=== PATIENT | female | born 1955 | race Two or more races ===

== ENCOUNTER → 2021-01-24 | Outpatient (CLI) | payer OTHER ==
--- NOTE | 2021-01-24 16:38 | CONS ---
CONSULTATION DATE OF SERVICE: 01/24/2021 This 65-year-old lady has been [facility] for difficulties initiating sleep and for awakenings from sleep and snoring. HISTORY OF PRESENT ILLNESS/SLEEP-WAKE EVALUATION: Patient's usual sleep schedule is from 10:30 p.m. or midnight until 9 to 11 a.m. She does have problems with falling asleep and has a TV set in bedroom. She sleeps in different positions, including back, side and stomach. She does snore and wakes up from sleep 2 times with nocturia. No history of hypnagogic hallucinations, sleep paralysis or cataplexy. The patient is falling asleep during the day, worries about her sleep. Dexter Sleepiness Scale is 5. Usually she feels refreshed after a nap and may see or not see dreams during the naps. PAST MEDICAL HISTORY: Positive for hypertension, allergies, acid reflux. PAST SURGICAL HISTORY: Cyst removed from left shoulder. CURRENT MEDICATIONS: The patient did not bring her list of medications. She takes medication for hypertension, Claritin, omeprazole. SOCIAL HISTORY: Negative for smoking nicotine or using alcohol. Occasionally smokes marijuana. FAMILY HISTORY: Positive for cancer, hypertension. REVIEW OF SYSTEMS: No fevers. No double vision. No recent chest pain. No shortness of breath. No abdominal pain. No bleeding episodes. No blood in the urine. No seizure episodes. Difficulties initiating sleep. Multiple awakenings from sleep. Snoring. PHYSICAL EXAMINATION: GENERAL APPEARANCE: Pleasant -[place] lady without distress. VITAL SIGNS: BP 119/78, HR 84, RR 15, height 5 feet 4-1/2 inches, weight 148. Body mass index 25. Temperature 98.4, oxygen saturation at room air 95%. HEENT: PERRLA, EOMI, evaluation of oropharynx showed tongue protrudes midline. Low position of soft palate; Mallampati III. NECK: Supple, no JVD. Thyroid is not palpable. LUNGS: Clear to percussion and to auscultation. Good air exchange. No wheezing or rhonchi. HEART: S1, S2 regular. No murmurs, gallops, or rubs. ABDOMEN: Soft and nontender. Bowel sounds are present. No organomegaly appreciated. EXTREMITIES: No clubbing or cyanosis. CLINICAL INSTRUCTOR: Awake, alert, and oriented X3. Cranial nerves 2 to 7 intact. There is no fasciculation or atrophy. noted. No focal deficits observed. IMPRESSION: 1. Snoring, multiple awakenings from sleep with nocturia, low position of soft palate; obstructive sleep apnea-hypopnea syndrome. 2. Insomnia with difficulties initiating sleep, psychophysiological. 3. Hypertension. 4. Allergies. 5. Acid reflux. 6. Status post cyst removed from left shoulder. PLAN: 1. I discussed with the patient psychological techniques for insomnia, including stimulus control, paradoxical intention, worry time, no watching clock in bedroom. 2. Polysomnography for evaluation of patient's breathing during sleep. 3. CPAP/BiPAP titration if sleep study confirms obstructive sleep apnea-hypopnea syndrome. 4. Preferable position during sleep on the side. 5. No driving if patient feels any sleepiness. 6. I will see patient for follow up visit to explain results of testing and following plan. Thank you very much for referring this patient for consultation. Sincerely, Jasiel Strickland MD, PhD, FAASM Diplomat [employer] [place] [employer] Sleep Medicine [employer] [place] [employer] Information Security Analyst of [facility] [place] MMODL / DIANNEN: [id number] /
== END ==
LOC: SLEEP 14:58
PROVIDERS: ATTEND Internal Medicine
DX: G47.33 Obstructive sleep apnea (adult) (pediatric) (principal); F51.04 Psychophysiologic insomnia; I10 Essential (primary) hypertension; K21.9 Gastro-esophageal reflux disease without esophagitis; T78.40XA Allergy, unspecified, initial encounter; Z98.890 Other specified postprocedural states; Z79.899 Other long term (current) drug therapy
CPT/HCPCS: 99211